=== PATIENT | female | born 1970 | race Caucasian/White ===

== ENCOUNTER 2018-03-01 16:31 | Emergency (ER) | payer BC, SELFPAY ==
[2018-03-01 17:25] LABS: Absolute Monocytes 0.5 K/uL (0.1-1.3); Absolute Neutrophil 3.7 K/uL (1.8-8.0); Basophils % 0.7 % (0-1.3); Eosinophils % 2.3 % (0-4.4); Hematocrit 40.3 % (36.0-45.0); Lymphocytes % 40.3 % (15.3-44.8); MCH 28.4 pg (27.0-35.0); MCV 85.7 fL (80-100); MPV 9.2 fL (7.6-11.3); Monocytes % 7.2 % (3.3-12.3)
[2018-03-01] MEDS ORDERED: cloNIDine HCl 0.1 MG TAB ONE (17:25)
--- NOTE | 2018-03-01 17:27 | RAD REPORT ---
EXAM DESCRIPTION: CT - Head Brain Wo Cont - 03/01/2018 5:14 pm CLINICAL HISTORY: Numbness/left facial weakness COMPARISON: None. TECHNIQUE: Computed axial tomography of the head was obtained. IV contrast was not requested. All CT scans are performed using dose optimization technique as appropriate and may include automated exposure control or mA/KV adjustment according to patient size. FINDINGS: An intracranial bleed is not seen . The ventricles are normal in caliber. No extra-axial fluid collection is noted. A 4 millimeter calcification is present within the right fr ontal lobe which may be secondary to prior infection or a cavernous angioma Fluid within the sinuses/ mastoids is not seen. IMPRESSION: No acute intracranial abnormality is seen. If patient's symptoms persist MRI of the bra in would be recommended.
--- NOTE | 2018-03-01 17:30 | RAD REPORT ---
EXAM DESCRIPTION: Jeramie Single View03/01/2018 5:23 pm CLINICAL HISTORY: Chest pain COMPARISON: 2007 FINDINGS: The lungs appear clear of acute infiltrate. The heart is normal size IMPRESSION: No acute abnormalities displayed
[2018-03-01 17:55] LABS: Potassium 4.3 mmol/L (3.5-5.1)
--- NOTE | 2018-03-01 18:04 | EDPHYS ---
Physician Documentation [facility] Name: Kimberly Rueda Age: 47 yrs Sex: Female : 1970 Arrival Date: 03/01/2018 Time: 16:34 Bed 17 Private MD: out of town, doctor ED Physician Juan Varma HPI: 03/01 17:07 This 47 yrs old Female presents to ER via Ambulatory with complaints of Chest rn Pain. 17:07 The patient or guardian reports chest pain that is located primarily in the anterior rn chest wall, bilaterally. Onset: 3 week(s) ago. The pain radiates to the right arm, the right shoulder. The chest pain is described as sharp. Duration: The patient or guardian reports multiple episodes, that are intermittent, the episodes last approximately 1 minute(s). Severity of pain: At its worst the pain was mild in the emergency department the pain is unchanged. The patient has experienced similar episodes in the past. Reports left sided chest pain, pinches/sharp, radiates to right shoulder and arm, hurts to move, hurts more after a day of work, lasts for about 1 minute, no nausea/vomiting/diaphoresis, told in past ecg showed possible heart attack, didn't have pain so did not seek care. Now with chest pain wants to make sure her heart is ok. Has had the right shoulder pain before, seen in [place], told pinched nerve/inflammation. No current chest pain.. 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 - Social history:: Smoking status: Patient/guardian denies using tobacco. - Ebola Screening: : No symptoms or risks identified at this time. - Family history:: not pertinent. - Hospitalizations: : No recent hospitalization is reported. ROS: 17:07 Constitutional: Negative for fever, chills, and weight loss, Eyes: Negative for injury, rn pain, redness, and discharge, Neck: Negative for injury, pain, and swelling, Cardiovascular: Negative for palpitations, and edema, Respiratory: Negative for shortness of breath, cough, wheezing, and pleuritic chest pain, Abdomen/GI: Negative for abdominal pain, nausea, vomiting, diarrhea, and constipation, MS/Extremity: Negative for injury and deformity, Skin: Negative for injury, rash, and discoloration, Neuro: Negative for headache, weakness, numbness, tingling, and seizure. Exam: 17:07 Constitutional: This is a well developed, well nourished patient who is awake, alert, rn and in no acute distress. Head/Face: Normocephalic, + mild left hemifacial weakness affecting upper and lower face. Eyes: Pupils equal round and reactive to light, extra-ocular motions intact. Lids and lashes normal. Conjunctiva and sclera are non-icteric and not injected. Cornea within normal limits. Periorbital areas with no swelling, redness, or edema. Neck: Trachea midline, no thyromegaly or masses palpated, and no cervical lymphadenopathy. Supple, full range of motion without nuchal rigidity, or vertebral point tenderness. No Meningismus. Cardiovascular: Regular rate and rhythm with a normal S1 and S2. No gallops, murmurs, or rubs. Normal PMI, no JVD. No pulse deficits. Respiratory: Lungs have equal breath sounds bilaterally, clear to auscultation and percussion. No rales, rhonchi or wheezes noted. No increased work of breathing, no retractions or nasal flaring. Abdomen/GI: Soft, non-tender, with normal bowel sounds. No distension or tympany. No guarding or rebound. No evidence of tenderness throughout. Skin: Warm, dry with normal turgor. Normal color with no rashes, no lesions, and no evidence of cellulitis. MS/ Extremity: Pulses equal, no cyanosis. Neurovascular intact. Full, normal range of motion. Equal circumference. Neuro: Awake and alert, GCS 15, oriented to person, place, time, and situation. Cranial nerves II-XII grossly intact. Motor strength 5/5 in all extremities. Sensory grossly intact. Cerebellar exam normal. Normal gait. Vital Signs: 16:35 BP 189 / 105; Pulse 73; Resp 16 S; Temp 98.3(O); Pulse Ox 98% on R/A; Weight 74.84 kg iw (R); Height 5 ft. 0 in. (152.40 cm) (R); Pain 10/10; 17:23 BP 193 / 101; Pulse 80; Resp 18; Pulse Ox 98% on R/A; em 17:50 BP 144 / 81; Pulse 76; Resp 18; Pulse Ox 98% on R/A; Pain 0/10; em 18:28 BP 125 / 81; Pulse 74; Resp 16; Pulse Ox 99% on R/A; Pain 0/10; em 16:35 Body Mass Index 32.22 (74.84 kg, 152.40 cm) iw MDM: 16:38 Patient medically screened. rn 17:07 Differential diagnosis: chest wall pain, costochondritis, gastroesophageal reflux rn disease (GERD), pericarditis, pleurisy, pneumothorax, arthritis, bells palsy. 17:32 ED course: Pt reports noticed left facial weakness 3 weeks ago.. rn 18:01 Data reviewed: vital signs, nurses notes, lab test result(s), EKG, radiologic studies, rn CT scan, plain films, and as a result, I will discharge patient. Counseling: I had a detailed discussion with the patient and/or guardian regarding: the historical points, exam findings, and any diagnostic results supporting the discharge/admit diagnosis, lab results, radiology results, the need for outpatient follow up, to return to the emergency department if symptoms worsen or persist or if there are any questions or concerns that arise at home. Response to treatment: the patient's symptoms have mildly improved after treatment, and as a result, I will discharge patient. Special discussion: Based on the patient's history, exam, and Dx evaluation, there is no indication for emergent intervention or inpatient Tx. It is understood by the patient/guardian that if the Sx's persist or worsen they need to return immediately for re-evaluation. I discussed with the patient/guardian in detail that at this point there is no indication for admission to the hospital. It is understood, however, that if the symptoms persist or worsen the patient needs to return immediately for re-evaluation. 03/01 16:54 Order name: CBC with Diff; Complete Time: 17:33 rn 03/01 16:54 Order name: Basic Metabolic Panel; Complete Time: 17:59 rn 03/01 16:54 Order name: Troponin (emerg Dept Use Only); Complete Time: 17:53 rn 03/01 16:54 Order name: CT Head Brain wo Cont; Complete Time: 17:33 rn 03/01 16:54 Order name: XRAY Chest (1 view); Complete Time: 17:33 rn 03/01 16:54 Order name: IV Start; Complete Time: 17:16 rn 03/01 16:54 Order name: EKG; Complete Time: 16:54 rn 03/01 16:54 Order name: EKG - Nurse/Tech; Complete Time: 17:15 rn Administered Medications: 17:33 Drug: cloNIDine 0.2 mg Route: PO; em 18:31 Follow up: Response: No adverse reaction; Blood pressure is lowered em Disposition: 03/01/18 18:04 Discharged to Home. Impression: Chest pain, unspecified, Pain in right shoulder, Valdez's palsy. - Condition is Stable. - Discharge Instructions: Joint Pain, Valdez Palsy, Adult, Nonspecific Chest Pain, Musculoskeletal Pain, Shoulder Pain. - Prescriptions for Medrol (Yvan) 4 mg Oral Tablets, Dose Pack - take 1 tablet by ORAL route as directed - follow package instructions; 1 packet. - Medication Reconciliation Form, Thank You Letter, Antibiotic Education, Prescription Opioid Use form. - Follow up: Private Physician; When: As needed; Reason: Recheck today's complaints, Re-evaluation by your physician. - Problem is new. - Symptoms have improved. Signatures: Dispatcher [employer] EDKar Galicia, DINING ROOM COORDINATOR DINING ROOM COORDINATOR em Isabela Alegre RN RN iw Nieto, Roman, MD MD fitter and turner: (The following items were deleted from the chart) 18:32 18:04 03/01/2018 18:04 Discharged to Home. Impression: Chest pain, unspecified; Pain in em right shoulder; Valdez's palsy. Condition is Stable. Forms are Medication Reconciliation Form, Thank You Letter, Antibiotic Education, Prescription Opioid Use. Follow up: Private Physician; When: As needed; Reason: Recheck today's complaints, Re-evaluation by your physician. Problem is new. Symptoms have improved. rn
--- NOTE | 2018-03-01 18:04 | ER ---
Nurse's Notes [facility] Name: Kimberly Rueda Age: 47 yrs Sex: Female : 1970 Arrival Date: 03/01/2018 Time: 16:34 Bed 17 Private MD: out of town, doctor Diagnosis: Chest pain, unspecified;Pain in right shoulder;Valdez's palsy Presentation: 03/01 16:35 Presenting complaint: Patient states: Intermittent left sided chest pain radiating to aa5 right side of chest and right arm x 1 month ago. Pt also reports numbness around her left eye and left facial droop x 3 weeks ago. Pt states "I was seen at a doctor's office when I started having chest pain and they told me to come to the ER then because I was having a heart attack but I didn't come". 16:35 Transition of care: patient was not received from another setting of care. Onset of aa5 symptoms was February 2018. 16:35 Method Of Arrival: Ambulatory aa5 16:35 Risk Assessment: Do you want to hurt yourself or someone else? Patient reports no aa5 desire to harm self or others. Initial Sepsis Screen: Does the patient meet any 2 criteria? No. Patient's initial sepsis screen is negative. Does the patient have a suspected source of infection? No. Patient's initial sepsis screen is negative. Care prior to arrival: None. 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 - Social history:: Smoking status: Patient/guardian denies using tobacco. - Ebola Screening: : No symptoms or risks identified at this time. - Family history:: not pertinent. - Hospitalizations: : No recent hospitalization is reported. Screenin:54 Abuse screen: Denies threats or abuse. Nutritional screening: No deficits noted. em Tuberculosis screening: No symptoms or risk factors identified. Fall Risk None identified. Assessment: 17:00 General: Appears in no apparent distress. comfortable, Behavior is calm, cooperative. em Pain: Denies pain. Pain radiates to right shoulder Pain began 2-3 days ago. Pain: Complains of pain in chest. Neuro: Level of Consciousness is awake, alert, obeys commands, Oriented to person, place, time, situation, Flute Teacher are equal bilaterally Speech is normal, reports numbness and eye lid droop for about a month. Cardiovascular: Capillary refill < 3 seconds Patient's skin is warm and dry. Cardiovascular: Reports intermitent chest pain that radiates to right shoulder, has been there for several days, currently denies chest pain, nausea, vomiting, SOB Denies chest pain, nausea, vomiting, Heart tones S1 S2 present. Respiratory: Airway is patent Respiratory effort is even, unlabored, Respiratory pattern is regular, symmetrical, Breath sounds are clear bilaterally. GI: Abdomen is flat. : Urine is clear. EENT: No signs and/or symptoms were reported regarding the EENT system. Derm: Skin is intact, Skin is pink, warm \\T\\ dry. Musculoskeletal: Range of motion: intact in all extremities. 17:40 Reassessment: Patient appears in no apparent distress at this time. I agree with above iw assessment by Kar Rodriguez LVN. 17:50 Reassessment: Patient appears in no apparent distress at this time. Patient and/or em family updated on plan of care and expected duration. Pain level reassessed. Patient is alert, oriented x 3, equal unlabored respirations, skin warm/dry/pink. Patient denies pain at this time. Patient states feeling better. Patient states symptoms have improved. Vital Signs: 16:35 BP 189 / 105; Pulse 73; Resp 16 S; Temp 98.3(O); Pulse Ox 98% on R/A; Weight 74.84 kg iw (R); Height 5 ft. 0 in. (152.40 cm) (R); Pain 10/10; 17:23 BP 193 / 101; Pulse 80; Resp 18; Pulse Ox 98% on R/A; em 17:50 BP 144 / 81; Pulse 76; Resp 18; Pulse Ox 98% on R/A; Pain 0/10; em 18:28 BP 125 / 81; Pulse 74; Resp 16; Pulse Ox 99% on R/A; Pain 0/10; em 16:35 Body Mass Index 32.22 (74.84 kg, 152.40 cm) iw ED Course: 16:34 Patient arrived in ED. mr 16:34 out of town, doctor is Private Physician. mr 16:35 Arm band placed on Patient placed in an exam room, on a stretcher. aa5 16:38 Juan Varma MD is Attending Physician. rn 16:46 Triage completed. aa5 16:48 Kar Rodriguez LVN is Primary Nurse. em 17:10 Initial lab(s) drawn, by me, sent to lab. EKG done, by ED staff, reviewed by Juan Varma MD. Inserted saline lock: 20 gauge in right antecubital area, using aseptic technique. Blood collected. 17:13 Patient has correct armband on for positive identification. Placed in gown. Bed in low mh5 position. Call light in reach. Side rails up X 1. Adult w/ patient. Warm blanket given. monitoring engineer on. Pulse ox on. NIBP on. 17:15 CT Head Brain wo Cont In Process Unspecified. EDMS 17:15 CT completed. Patient moved to CT via wheelchair. Patient moved back from CT. 1 17:15 Troponin (emerg Dept Use Only) Sent. mh5 17:15 Basic Metabolic Panel Sent. mh5 17:16 CBC with Diff Sent. mh5 17:23 XRAY Chest (1 view) In Process Unspecified. EDMS 17:54 No provider procedures requiring assistance completed. Patient maintains SpO2 em saturation greater than 95% on room air. 18:27 IV discontinued, intact, bleeding controlled, No redness/swelling at site. Pressure em dressing applied. Administered Medications: 17:33 Drug: cloNIDine 0.2 mg Route: PO; em 18:31 Follow up: Response: No adverse reaction; Blood pressure is lowered em Outcome: 18:04 Discharge ordered by . rn 18:29 Discharged to home ambulatory, with family. em 18:29 Condition: good 18:29 Discharge instructions given to patient, family, Instructed on discharge instructions, follow up and referral plans. medication usage, Demonstrated understanding of instructions, follow-up care, medications, Prescriptions given X 1. 18:32 Patient left the ED. em Signatures: Dispatcher [employer] Reshma Maradiaga mr Michael, Kar, CRYSTAL MACHINING COORDINATOR CRYSTAL MACHINING COORDINATOR em Isabela Alegre, Juan Choi RN, MD MD rn Calderon, Audri, RN RN Radhika Aviles 1 Reshma Caputo [facility] Corrections: (The following items were deleted from the chart) 18:27 17:00 Neuro: Level of Consciousness is awake, alert, obeys commands, Oriented to em person, place, time, situation, Flute Teacher are equal bilaterally Speech is normal, em 18:32 17:50 Reassessment: Patient appears in no apparent distress at this time. Patient em and/or family updated on plan of care and expected duration. Pain level reassessed. Patient is alert, oriented x 3, equal unlabored respirations, skin warm/dry/pink. em
--- NOTE | 2018-03-03 07:45 | EKG ---
Test Date: 2018-03-01 Test Time: 16:54:37 Vessel Builder: JUAN MEASUREMENT RESULTS: Intervals: Rate: 74 SC: 144 QRSD: 88 QT: 400 QTc: 444 Herald: P: 8 SC: 144 QRS: -41 T: 53 INTERPRETIVE STATEMENTS: Normal sinus rhythm Left axis deviation Voltage criteria for left ventricular hypertrophy Abnormal ECG Compared to ECG 02/18/2007 18:24:58 Left-axis deviation now present Electronically Signed On 03-03-18 07:44:37 CDT by Soto Ballard
== END 2018-03-01 18:32 | disposition home or self-care (01) ==
LOC: ER 16:31
DX: G51.0 Bell's palsy (principal); M25.511 Pain in right shoulder; I10 Essential (primary) hypertension; E11.9 Type 2 diabetes mellitus without complications; E78.5 Hyperlipidemia, unspecified; Z79.82 Long term (current) use of aspirin
CPT/HCPCS: 36415; 70450; 71045; 80048; 84484; 85025; 93005; 99285

== ENCOUNTER 2020-03-07 12:23 | Emergency (ER) | payer SELFPAY ==
[2020-03-07] MEDS ORDERED: dexAMETHasone 10 MG/ML VIAL ONE (12:53)
--- NOTE | 2020-03-07 13:26 | EDPHYS ---
Physician Documentation [facility] Name: Kimberly Rueda Age: 49 yrs Sex: Female : 1970 Arrival Date: 03/07/2020 Time: 12:30 Bed 6 Private MD: ED Physician Juan Varma HPI: 03/07 12:51 This 49 yrs old Female presents to ER via Ambulatory with complaints of pm1 Facial Droop, Ear Pain. 12:51 The patient presents to the emergency department with Facial droop to right side and pm1 right ear pain. 12:51 Onset: The symptoms/episode began/occurred last night. Context: occurred at home. pm1 Associated signs and symptoms: Pertinent negatives: altered mental status, nausea, weakness, Vomiting. Severity of symptoms: in the emergency department the symptoms are unchanged. The patient has not experienced similar symptoms in the past. The patient has been recently seen at an urgent care, for similar complaints, and was sent to the [facility] Emergency Department for further evaluation. 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 - Social history:: Smoking status: Patient denies any tobacco usage or history of. Patient/guardian denies using alcohol, street drugs. ROS: 12:51 Constitutional: Negative for fever, chills, and weight loss, Cardiovascular: Negative pm1 for chest pain, palpitations, and edema, Respiratory: Negative for shortness of breath, cough, wheezing, and pleuritic chest pain, Abdomen/GI: Negative for abdominal pain, nausea, vomiting, diarrhea, and constipation, MS/Extremity: Negative for injury and deformity, Skin: Negative for injury, rash, and discoloration. 12:51 ENT: Positive for ear pain. 12:51 Neuro: Positive for Right sided facial drooping, Negative for dizziness, weakness. Exam: 12:51 Constitutional: This is a well developed, well nourished patient who is awake, alert, pm1 and in no acute distress. Head/Face: Normocephalic, atraumatic. 12:51 Skin: Warm, dry with normal turgor. Normal color with no rashes, no lesions, and no evidence of cellulitis. MS/ Extremity: Pulses equal, no cyanosis. Neurovascular intact. Full, normal range of motion. 12:51 ENT: External ear(s): are unremarkable, Ear canal(s): are normal, TM's: are normal, Posterior pharynx: is normal, Dental exam: dental caries, not appreciated, pain, is not appreciated. 12:51 Neuro: Orientation: is normal, Mentation: is normal, Cranial nerves: facial droop noted on right, with forehead spared. Ptosis of right eye, inability to fully close right eyelid. Motor: is normal, Sensation: is normal, no obvious gross deficits, Gait: is steady, at a normal pace, without difficulty. Vital Signs: 12:38 BP 162 / 107; Pulse 75; Resp 17; Temp 97.9; Pulse Ox 100% ; Pain 9/10; ll1 MDM: 12:37 Patient medically screened. pm1 12:51 Data reviewed: vital signs. Data interpreted: Pulse oximetry: on room air is 100 %. pm1 Interpretation: normal. 13:24 Counseling: I had a detailed discussion with the patient and/or guardian regarding: the pm1 historical points, exam findings, and any diagnostic results supporting the discharge/admit diagnosis, the need for outpatient follow up, to return to the emergency department if symptoms worsen or persist or if there are any questions or concerns that arise at home. Administered Medications: 12:48 Drug: Decadron 10 mg Route: IM; Site: right deltoid; sv 13:42 Follow up: Response: No adverse reaction sv Disposition: 16:19 Co-signature as Attending Physician, Juan Varma MD. rn Disposition: 03/07/20 13:25 Discharged to Home. Impression: Valdez's palsy. - Condition is Stable. - Discharge Instructions: Valdez Palsy, Adult. - Prescriptions for prednisone 10 mg Oral tablet - take 1 tablet by ORAL route once daily Take 6 tablets once daily for 5 days, then 4 tablets once daily for 2 days, then 2 tablets once daily for 2 days, then 1 tablet once daily for 2 days; 44 tablet. - Medication Reconciliation Form, Thank You Letter, Antibiotic Education, Prescription Opioid Use form. - Follow up: Emergency Department; When: As needed; Reason: Worsening of condition. Follow up: Private Physician; When: 2 - 3 days; Reason: Recheck today's complaints, Continuance of care, Re-evaluation by your physician. - Problem is new. - Symptoms have improved. Signatures: Camryn Talbot RN RN Isabela Buitrago RN RN iw Nieto, Roman, MD MD rn Marinas, Patrick, MINISTER HELPER MINISTER HELPER pm1 Nikita Jean RN RN ll1 Corrections: (The following items were deleted from the chart) 14:01 13:25 03/07/2020 13:25 Discharged to Home. Impression: Valdez's palsy. Condition is iw Stable. Forms are Medication Reconciliation Form, Thank You Letter, Antibiotic Education, Prescription Opioid Use. Follow up: Emergency Department; When: As needed; Reason: Worsening of condition. Follow up: Private Physician; When: 2 - 3 days; Reason: Recheck today's complaints, Continuance of care, Re-evaluation by your physician. Problem is new. Symptoms have improved. pm1
--- NOTE | 2020-03-07 13:26 | ER ---
Nurse's Notes [facility] Name: Kimberly Rueda Age: 49 yrs Sex: Female : 1970 Arrival Date: 03/07/2020 Time: 12:30 Bed 6 Private MD: Diagnosis: Valdez's palsy Presentation: 03/07 12:38 Chief complaint: Patient states: Right ear pain and right sided facial numbness and ll1 droop since last night. Sent by [facility] for further eval. No cough/fever. No trouble walking. Coronavirus screen: Patient denies a cough. Patient denies shortness of breath or difficulty breathing. Patient denies measured and/or subjective temperature greater than 100.4F prior to today's visit. Patient denies travel on a cruise ship or to a country the [facility] currently lists as an affected area. Patient denies contact with known and/or suspected case of COVID-19. Proceed with normal triage. Ebola Screen: Patient denies travel to an Ebola-affected area in the 21 days before illness onset. Initial Sepsis Screen: Does the patient meet any 2 criteria? No. Patient's initial sepsis screen is negative. Risk Assessment: Do you want to hurt yourself or someone else? Patient reports no desire to harm self or others. Onset of symptoms was March 06, 2020. 12:38 Method Of Arrival: Ambulatory ll1 12:38 Acuity: ODALYS 3 ll1 13:40 Initial Sepsis Screen: Does the patient have a suspected source of infection? No. iw Patient's initial sepsis screen is negative. Triage Assessment: 13:45 General: Appears in no apparent distress. Behavior is calm, cooperative. 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 N/A - iw Stroke Activation: Symptom onset > 6 hours Physician: Stroke Attending; Name: ; Notified At: ; Arrived At: Physician: Chief Stroke Resident; Name: ; Notified At: ; Arrived At: Physician: Stroke Resident; Name: ; Notified At: ; Arrived At: Physician: ED Attending; Name: ; Notified At: ; Arrived At: Physician: ED Resident; Name: ; Notified At: ; Arrived At: Historical: - Allergies: 12:40 No Known Allergies; ll1 - PMHx: 12:40 Hypertension; Hyperlipidemia; Diabetes - NIDDM; ll1 - Immunization history:: Adult Immunizations up to date. - Social history:: Smoking status: Patient denies any tobacco usage or history of. Patient/guardian denies using alcohol, street drugs. Screenin:40 Abuse screen: Denies threats or abuse. Denies injuries from another. Nutritional sv screening: No deficits noted. Tuberculosis screening: No symptoms or risk factors identified. Fall Risk None identified. Assessment: 13:41 Reassessment: Pt waiting for Bandar AVERY to speak with her regarding disposition. sv 14:00 Reassessment: Patient appears in no apparent distress at this time. Patient and/or iw family updated on plan of care and expected duration. Pain level reassessed. Patient is alert, oriented x 3, equal unlabored respirations, skin warm/dry/pink. Pain: Complains of pain in right ear. Vital Signs: 12:38 BP 162 / 107; Pulse 75; Resp 17; Temp 97.9; Pulse Ox 100% ; Pain 9/10; ll1 ED Course: 12:30 Patient arrived in ED. fj1 12:36 Bandar Ferrer NP is PHCP. pm1 12:36 Juan Varma MD is Attending Physician. pm1 12:39 Camryn Talbot, LOC is Primary Nurse. sv 12:40 Triage completed. ll1 12:40 Nurse Practitioner and/or Physician Field Account Manager to see patient. sv 12:40 Arm band placed on Patient placed in an exam room, on a stretcher. ll1 12:40 Patient has correct armband on for positive identification. Bed in low position. Call sv light in reach. 13:41 No provider procedures requiring assistance completed. Patient did not have IV access sv during this emergency room visit. Administered Medications: 12:48 Drug: Decadron 10 mg Route: IM; Site: right deltoid; sv 13:42 Follow up: Response: No adverse reaction sv Outcome: 13:25 Discharge ordered by . pm1 14:01 Discharged to home ambulatory. iw 14:01 Condition: good 14:01 Discharge instructions given to patient, Instructed on discharge instructions, follow up and referral plans. medication usage, Demonstrated understanding of instructions, follow-up care, medications, Prescriptions given X 1. 14:01 Patient left the ED. Signatures: Camryn Talbot RN RN Isabela Alegre RN RN Bandar Ferrer NP DEBURRER STRIP pm1 Glenn Reyes fj1 Nikita Jean, RN RN ll1
[2020-03-07 14:10] VITALS: BP 162/107; TEMP 97.9; O2SAT 100
== END 2020-03-07 14:01 | disposition home or self-care (01) ==
LOC: ER 12:23
DX: G51.0 Bell's palsy (principal); I10 Essential (primary) hypertension
CPT/HCPCS: 96372; 99283; J1100